=== PATIENT | male | born 1995 | race Caucasian/White ===

== ENCOUNTER 2017-08-08 23:14 | Emergency (ER) | payer MEDICAID ==
[~2017-08-08] VITALS: Ht 177.8 cm; Wt 74.8 kg
[2017-08-09 00:56] VITALS: BP 109/88
== END 2017-08-09 00:56 | disposition home or self-care (01) ==
LOC: ED 23:14
DX: F41.9 Anxiety disorder, unspecified (principal); R42 Dizziness and giddiness

== ENCOUNTER 2017-08-23 14:55 | Emergency (ER) | payer MEDICAID ==
[~2017-08-23] VITALS: Ht 175.3 cm; Wt 77.1 kg
[2017-08-23 15:45] LABS: BASOPHIL % 0.4 % (0-2); PLATELET COUNT 251 x10^3mcL (130-400); RED CELL DISTRIBUTION WIDTH 13.3 % (11.5-14.5)
[2017-08-23 15:50] LABS: CALCIUM 9.3 mg/dL (8.5-10.1); CARBON DIOXIDE 25.8 mmol/L (21-32); CHLORIDE SERUM 106 mmol/L (98-107); CREATININE SERUM 0.9 mg/dL (0.7-1.3); GFR1 > 60 mL/min; GLUCOSE SERUM 94 mg/dL (74-106); POTASSIUM SERUM 3.5 mmol/L (3.5-5.1); SODIUM SERUM 142 mmol/L (136-145)
[2017-08-23 16:04] LABS: ALBUMIN 4.8 g/dL (3.4-5.0); ALKALINE PHOSPHATASE 62 U/L (46-116); ALT/SGPT 22 U/L (16-63); AST/SGOT 14 U/L (15-37); BILIRUBIN TOTAL 0.8 mg/dL (0.20-1.00); CHOLESTEROL 151 mg/dL (<200); MAGNESIUM 2.2 mg/dL (1.8-2.4); T4(THYROXINE) 8.7 ug/dL (4.7-13.3)
[2017-08-23 16:05] LABS: TOTAL PROTEIN, SERUM 8.5 g/dL (6.4-8.2)
[2017-08-23 16:11] LABS: AMPHETAMINE QUAL UR NONE DETECTED (NEG <=1000)
[2017-08-23 17:02] VITALS: BP 111/88
== END 2017-08-23 17:02 | disposition home or self-care (01) ==
LOC: ED 14:55
PROVIDERS: Emergency Medicine
DX: S16.1XXA Strain of muscle, fascia and tendon at neck level, initial encounter (principal); F43.20 Adjustment disorder, unspecified; X58.XXXA Exposure to other specified factors, initial encounter; Y93.89 Activity, other specified; Y99.8 Other external cause status; Y92.89 Other specified places as the place of occurrence of the external cause
CPT/HCPCS: 36415; Q0092